=== PATIENT | female | born 1970 | race Caucasian/White ===

== ENCOUNTER 2017-05-05 10:12 | Emergency (ER) | payer OTHER ==
[~2017-05-05] VITALS: Ht 322.6 cm; Wt 102.5 kg
[~2017-05-05 10:12] MED LIST: CELLCEPT500 MG PO; DAILY VITAMIN1 EAC3 PO; Guaifenesin/Dextromethorphan PO; LEVAQUIN500 MG PO; METOPROLOL TAR100 MG PO; NORCO 10-325 T1 EACH PO; PAROXETINE HCL40 MG PO; PLAQUENIL200 MG PO; TESSALON PERLE100 MG PO
[2017-05-05] MEDS ORDERED: IPRATROPIUM BROMIDE 0.02% 2.5 ML NEB NEB STA (10:22)
[2017-05-05] MEDS ORDERED: AZITHROMYCIN 500MG/NS 250 ML 250 ML IV STA (10:22)
[2017-05-05] MEDS ORDERED: ALBUTEROL SULF 0.083% NEB SOLN 3 ML NEB NEB STA (10:22)
[2017-05-05] MEDS ORDERED: KETOROLAC TROMETHAMINE 30 MG/ML VIAL IV STA (10:22)
[2017-05-05] MEDS ORDERED: SODIUM CHLORIDE 0.9% 1000ML 1,000 ML IV STA (10:22)
[2017-05-05] MEDS ORDERED: HYDROCODONE/APAP 10MG-325MG TAB PO ONE (10:30)
[2017-05-05] MEDS ORDERED: KETOROLAC TROMETHAMINE 60 MG/2 ML VIAL ONE (10:38)
[2017-05-05] MEDS ORDERED: KETOROLAC TROMETHAMINE 60 MG/2 ML VIAL IM ONE (11:15)
--- NOTE | 2017-05-05 11:28 | Diagnostic Imaging Report ---
PROCEDURE: Frontal and lateral views of the chest. COMPARISON: Patients [facility], , CHEST 2 VIEWS, 11/05/2015, 10:55. INDICATIONS: FEVER, COUGH, SHORT OF BREATH FINDINGS: Lines/tubes: None. Lungs: Lungs are well-inflated. Linear opacities in the right lower and likely lingula, which may represent subsegmental atelectasis or scarring. No consolidation or pulmonary edema. Pleura: There is no pleural effusion or pneumothorax. Heart and mediastinum: Cardiac silhouette is unremarkable. Pulmonary vasculature is normal. Tortuous aorta. Bones: No acute bony abnormality. No aggressive lytic lesion. Deformity of the lateral aspect of the right fifth, sixth, and likely fourth ribs, consistent with healed fractures IMPRESSION: 1. No acute cardiopulmonary abnormalities. 2. Subsegmental atelectasis versus scarring in the right lower lobe and likely lingula. Javier Agosto M.D. Dictated by: Javier Agosto M.D. on 05/05/2017 at 11:28 Electronically approved by: Javire Agosto M.D. on 05/05/2017 at 11:28
[2017-05-05] MEDS ORDERED: DEXAMETHASONE SOD PHOS 10 MG/1 ML VIAL INJ ONE (11:45)
[2017-05-05 11:55] LABS: BILIRUBIN,URINE NEGATIVE (NEGATIVE); KETONES,URINE NEGATIVE (NEGATIVE); LEUKOCYTE ESTERASE ,URINE NEGATIVE (NEGATIVE); NITRITE,URINE NEGATIVE (NEGATIVE); URINE UROBILINOGEN 0.2 mg/dL (0.2 - 1)
[2017-05-05 11:57] LABS: BASOPHILS # (AUTO) 0.1 (0.0-0.1); BASOPHILS % 0.5 % (0.0-1.0); COLOR,URINE YELLOW (YELLOW); EOSINOPHILS % 0.3 % (0.0-6.0); HEMATOCRIT 45.2 % (34.2-44.1); HEMOGLOBIN 15.4 g/dL (12.0-16.0); LYMPHOCYTES # (AUTO) 2.4 (1.0-3.2); LYMPHOCYTES % 17.2 % (18.0-39.1); MEAN CORPUSCULAR HEMOGLOBIN 30.9 pg (28-32); MEAN CORPUSCULAR HGB CONC 34.1 g/dL (31-35); MEAN CORPUSCULAR VOLUME 90.8 fL (81-99); MONOCYTES # (AUTO) 1.4 (0.2-0.8); MONOCYTES % 10.3 % (4.4-11.3); NEUTROPHILS # (AUTO) 9.9 (2.1-6.9); PLATELET COUNT 244 x10e3/uL (140-360); PROTEIN,URINE DIPSTICK 1+ (NEGATIVE); RED BLOOD COUNT 4.98 x10e6/uL (3.6-5.1); RED CELL DISTRIBUTION WIDTH 14.1 % (11.7-14.4)
[2017-05-05 11:58] LABS: CLARITY,URINE CLEAR (CLEAR)
[2017-05-05 12:21] LABS: ALANINE AMINOTRANSFERASE 138 IU/L (0-55); ALBUMIN 4.4 g/dL (3.5-5.0); ALBUMIN/GLOBULIN RATIO 0.9 (0.8-2.0); ALKALINE PHOSPHATASE 142 IU/L (40-150); ANION GAP 18.4 mmol/L (8-16); BLOOD UREA NITROGEN 12 mg/dL (7-26); BUN/CREATININE RATIO 13 (6-25); CALCIUM 9.5 mg/dL (8.4-10.2); CARBON DIOXIDE 23 mmol/L (22-29); CHLORIDE 102 mmol/L (98-107); CREATINE KINASE 178 IU/L (29-168); EST GLOMERULAR FILTRATION RATE > 60 ML/MIN (60-); GLUCOSE 116 mg/dL (74-118); POTASSIUM 4.4 mmol/L (3.5-5.1); SODIUM 139 mmol/L (136-145)
[2017-05-05 12:27] LABS: BACTERIA,URINE RARE /HPF; EPITHELIAL CELLS,URINE FEW /LPF; RBC,URINE 0-5 /HPF (0-5); WBC,URINE (MAN) 0-5 /HPF (0-5)
== END 2017-05-05 13:24 | disposition home or self-care (01) ==
LOC: ER 10:12
DX: R50.9 Fever, unspecified (principal); R05 Cough; J11.1 Influenza due to unidentified influenza virus with other respiratory manifestations
CPT/HCPCS: 36415; 71046; 80053; 81001; 82550; 82553; 83605; 84484; 85025; 87040; 87086; 87400; 93005; 99284; J0456; J1100; J1885; J7030